=== PATIENT | female | born 1995 | race Caucasian/White ===

== ENCOUNTER 2017-01-19 09:57 | Emergency (ER) | payer MEDICAID ==
[~2017-01-19] VITALS: Ht 162.6 cm; Wt 88.4 kg
[2017-01-19 11:07] LABS: BLOOD UREA NITROGEN 10 mg/dL (7-18)
[2017-01-19 11:32] VITALS: BP 103/54
== END 2017-01-19 13:06 | disposition home or self-care (01) ==
LOC: ED 10:49
DX: O12.02 Gestational edema, second trimester (principal); R60.0 Localized edema; Z3A.25 25 weeks gestation of pregnancy
CPT/HCPCS: 36415; 80048; 81003; 82040; 85025